=== PATIENT | male | born 1935 | race Caucasian/White ===

== ENCOUNTER 2017-02-05 15:01 | Inpatient (IN) | payer MEDICARE ==
[~2017-02-05 15:01] MED LIST: Iopamidol 370 76% 100 ML VIAL ONE
[2017-02-05] MEDS ORDERED: cefTRIAXone\\ROCEPHIN 2 GM in Sodium Chloride 0.9% 100 ML IVPB ONE (16:45)
[2017-02-05] MEDS ORDERED: Azithromycin 500 MG in Sodium Chloride 0.9% 250 ML 250 ML IVPB ONE (16:45)
[2017-02-05 16:55] LABS: Bilirubin Negative (Negative); Blood, Urine Trace (Negative); Glucose, Urine (Dipstick) 250 mg/dL (Negative); Ketone, Urine Negative (Negative); Nitrite Negative (Negative); Protein, Urine (Dipstick) 100 mg/dL (Neg-Trace)
[2017-02-05 16:57] LABS: Bacteria/HPF None Seen HPF (None Seen); RBC/HPF 0-3 HPF (0-3); Squamous Epithelial 0-3 HPF (0-3); WBC/HPF 0-3 HPF (0-3)
[2017-02-05 17:05] LABS: Hyaline Casts/LPF 0-3 HYALINE CAST LPF (0-3 Hyaline)
[2017-02-05 17:06] LABS: Renal Epithelial None Seen HPF (0-3); Transitional Epithelial NONE SEEN HPF (0-3)
[2017-02-05 17:39] LABS: Troponin I 0.017 ng/mL (< 0.028)
--- NOTE | 2017-02-05 18:22 | CT ---
CT OF THE THORAX WITH IV CONTRAST PE PROTOCAL WITH 3D REFORMATTED IMAGING: Indication: History of afib, left sided chest pain. Comparison: 12-17-15 FINDINGS: No central or segmental pulmonary embolus. There is airspace consolidation in the left lower lobe. Th ere are enlarged lymph nodes within the left hilar region. There is prominent cardiomegaly. There is prominence of the pulmonary vasculature. 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 Th ere is post-surgical change from prior mitral valvular replacement. There are areas of scattered peripheral ground glass opacities within the upper lobes, lingula and ri ght lower lobe which may reflect areas of subsegmental volume loss; however, edema or additional area s of infected pneumonitis cannot be entirely excluded. There has been interval development of a wedge compression abnormality at T6. Prominent hemangioma at T10 is similar. Smaller hemangioma within the right aspect of T3 is similar. IMPRESSION: 1. No central or segmental pulmonary embolus. 2. Left lower lobe pneumonia with left hilar lymphadenopathy. 3. There is prominent cardiomegaly and scattered ground glass opacities may reflect edema or subsegme ntal volume loss; however, infectious pneumonitis diffusely throughout both lungs cannot be entirely excluded. 4. Interval age indeterminate T6 wedge compression abnormality when compared to prior CT dated . POS: IKER
[2017-02-05] MEDS ORDERED: Chloraseptic Spray 180 ml Bottle PO PRN (18:49)
[2017-02-05] MEDS ORDERED: Acetaminophen 325 MG TAB PO PRN (18:49)
[2017-02-05] MEDS ORDERED: Ondansetron HCl/PF 4 MG/2 ML Vial IVP PRN (18:49)
[2017-02-05] MEDS ORDERED: Benzonatate 100 MG CAP PO PRN (18:49)
[2017-02-05] MEDS ORDERED: hydrALAZINE 20 MG/ML VIAL SLOW IVP PRN (18:49)
[2017-02-05] MEDS ORDERED: Sodium Chloride 0.65% Nasal 44 ML BOT EA NARE PRN (18:49)
[2017-02-05] MEDS ORDERED: Calcium Carbonate 500 MG ChewTAB PO PRN (18:49)
[2017-02-05 18:50] VITALS: BMI 23.1
[2017-02-05 20:30] LABS: Troponin I 0.021 ng/mL (< 0.028)
--- NOTE | 2017-02-05 20:43 | HP ---
CHIEF COMPLAINT: Generalized weakness. HISTORY OF PRESENT ILLNESS: This is an 82-year-old pleasant gentleman who was apparently in his [facility], came into the hospital because of generalized weakness. The patient actually was doing okay until the last couple of days, but today in the morning, he could not even get up from the chair and he called his daughter which he never does and his daughter came by. When she entered the room, he was a little confused and he was extremely weak, so she called 911 and he was brought to a different ER where they did initial workup and sent him out here for possible evaluation of the weakn ess. The patient out here had a CT scan of the chest to rule out PE and it showed left lower lobe pn eumonia and evidence of infectious pneumonitis diffusely throughout both lungs. The patient of note had cleaned his barn 2 or 3 days back. The patient had also suffered a fall 1-1/2 months back and urbina d been complaining of pain to the left side of the ribcage. The patient has some on and off cough, n o sputum production, no fever. No diarrhea or dysuria. The patient is going to be admitted for furt her evaluation and treatment of pneumonia and generalized weakness and T6 wedge compression abnormali ty. PAST MEDICAL HISTORY: Significant for atrial fibrillation, hyperlipidemia, hypertension, spontaneous small subacute cortical subarachnoid bleeds possibly secondary to Coumadin. The patient also had an other brain bleed in 2016 possibly secondary to trauma. He was on anticoagulation for the atrial fib rillation, which had been stopped by Dr. Wetzel. Of note, Dr. Wetzel was planning to do ablati on therapy for his atrial fibrillation. PAST SURGICAL HISTORY: Significant for CABG, hernia repair, ankle surgery. ALLERGIES: No known drug allergies. SOCIAL HISTORY: Does not smoke, drink, or do any recreational drugs. MEDICATIONS: Include only Crestor. He was taken off of all of his other medications. FAMILY HISTORY: Negative for diabetes and hypertension. REVIEW OF SYSTEMS: Significant for left-sided chest pain, otherwise no fever, no chills, no headache , no appetite, no hearing latencies. Some cough, some shortness of breath, generalized weakness. No diarrhea, dysuria, or polyuria. No memory or mood changes. No neck pain. PHYSICAL EXAMINATION: VITAL SIGNS: Blood pressure is 158/87, afebrile, respirations 22, pulse is 69. GENERAL: The patient is lying in bed, no apparent respiratory distress. HEENT: Atraumatic, n. Pupils equally round and react to light. Extraocular movements intact. Muco us membranes are moist. NECK: Supple. No JVD. CHEST: Some coarse breath sounds and rhonchi present in the left lower lobe, no rales. HEART: S1, S2. Irregular rhythm. ABDOMEN: Soft, obese. EXTREMITIES: No cyanosis, clubbing, edema. Distal pulses present. NEUROLOGIC: Alert, awake, oriented. No cranial deficits. No sensorimotor deficits. LABORATORY DATA: Lactic acid is 2.4. Troponin is 0.017. UA is negative except for evidence of prot einuria. Hemoglobin is 17, WBC 6.6, platelet is 120. Creatinine is 1.77. The patient's other labs are pending. ASSESSMENT AND PLAN: 1. Left lower lobe pneumonia with evidence of patchy opacities most probably likely secondary to inf ectious pneumonitis giving rise to shortness of breath and generalized weakness. We will do flu anti gen. We will do Legionella, IV antibiotics, blood cultures, sputum cultures. 2. Sepsis secondary to pneumonia with lactic acidosis of 2.4. We will gently hydrate the patient an d monitor lactic acid. 3. Acute renal failure on chronic kidney disease secondary to dehydration secondary to poor oral int jada. We will gently hydrate the patient. 4. Atrial fibrillation with no anticoagulation secondary to brain bleed. We will monitor that this hospital stay. Dr. Wetzel is the manager park. 4. Hypertension appears to be stable. We will follow the labs and do the need for.
[2017-02-05] MEDS: Docusate 100 MG CAP PO SCH (20:50)
[2017-02-05] MEDS: HYDROcodone/Acetaminophen 5/325 mg Tablet PO PRN (21:36)
[2017-02-05] MEDS: Sodium Chloride 0.45% 1,000 ML IV SCH (21:39)
[2017-02-05 23:44] LABS: Troponin I 0.021 ng/mL (< 0.028)
--- NOTE | 2017-02-06 01:08 | CON ---
DATE OF CONSULTATION: 02/05/2017 HISTORY OF PRESENT ILLNESS: The patient is an 81-year-old male with a past medical history of coronary artery disease, arrhythmia, atrial fibrillation, hypertension, hyperlipidemia, CVA, who presented to the emergency department for left-sided chest and flank pain and generalized weakness, w hich has been progressive for about a week. The patient has also been experiencing cough. He has urbina d a chest done, which was notable for left lower lobe infiltrate and he was admitted to the medicine service for further management of pneumonia. CTA was also notable for an age indeterminate T6 wedge deformity when compared to prior CT from 12/2015. I am seeing the patient on the floor, he is compla ining of some left-sided chest pain. He has no appreciable back pain. He is generally weak througho ut. Denies any numbness or tingling in any extremities. Bowel or bladder incontinence. PAST MEDICAL HISTORY: Coronary artery disease, atrial fibrillation, hypertension, hyperlipidemia, hi story of hemorrhagic cerebrovascular accident. PAST SURGICAL HISTORY: Open heart surgery with valve repair, hernia repair, ankle surgery. SOCIAL HISTORY: The patient does not smoke, drink or use any drugs. ALLERGIES: The patient has no known drug allergies. FAMILY HISTORY: Noncontributory. REVIEW OF SYSTEMS: Per HPI. PHYSICAL EXAMINATION: GENERAL: The patient is lying in bed comfortable, in no acute distress. HEAD: Normocephalic, atraumatic. EYES: PERRLA. Extraocular movements intact. ENT: Oral mucosa is pink and intact. Voice is normal. NECK: Nontender to palpation. Free active range of motion, no meningismus or nuchal rigidity. RESPIRATORY: Symmetric chest expansion. No evidence of respiratory distress. CARDIOVASCULAR: Regular rate and rhythm. MUSCULOSKELETAL: Free active range of motion of all extremities, no focal motor weakness or reflex a symmetry. NEUROLOGIC: The patient is alert and oriented x3. Normal speech. No focal motor weakness. BACK: Nontender to palpation. ASSESSMENT: Age indeterminate T6 compression fracture. PLAN: We will recommend TLSO brace for treatment of compression fracture. No surgical intervention is indicated at this time. The patient should wear the brace for all out of bed activities, can ricky ve for lying in bed or when he needs to shower. We will plan to reevaluate the patient as outpatient in the office in 4 weeks with the repeat set of x-rays. Please reach out to Neurosurgery Service fo r additional questions or concerns.
[2017-02-06 05:08] LABS: ALT (SGPT) 10 U/L (8-55); AST (SGOT) 10 U/L (5-34); Alkaline Phosphatase 78 U/L (40-150); Anion Gap 10 mmol/L (10-20); BUN (Urea Nitrogen) 20 mg/dL (8.4-25.7); Bilirubin, Total 0.8 mg/dL (0.2-1.2); Calc. Creatinine Clearance 44 mL/min (70-130); Calcium 9.3 mg/dL (7.8-10.44); Carbon Dioxide 23 mmol/L (23-31); Chloride 110 mmol/L (98-107); Estimated GFR-MDRD 50; Globulin 2.3 g/dL (2.4-3.5); Protein, Total 5.7 g/dL (5.8-8.1)
[2017-02-06 05:36] LABS: Hematocrit 40.9 % (42.0-52.0); Mean Platelet Volume 7.7 fL (7.4-10.4); Neutrophil 76 % (42-75); Reactive Lymphocytes 3 % (0-10); White Blood Cell (WBC) Count 5.6 thou/uL (4.8-10.8)
[2017-02-06] MEDS ORDERED: FLU VACC TS2017-18 (>65YR) 0.5 ML SYRINGE IM ONE (09:00)
[2017-02-06] MEDS: Docusate 100 MG CAP PO SCH ×2 (09:23→21:19)
[2017-02-06] MEDS: Sodium Chloride 0.45% 1,000 ML IV SCH ×2 (09:30→23:13)
[2017-02-06] MEDS: HYDROcodone/Acetaminophen 10/325 mg Tablet PO PRN ×2 (10:50→21:54)
[2017-02-06] MEDS ORDERED: cefTRIAXone\\ROCEPHIN 1 GM in Sodium Chloride 0.9% 100 ML IVPB SCH (11:30)
[2017-02-06] MEDS: cefTRIAXone\\ROCEPHIN 1 GM, Syringe 0.4 ML in Sterile Water 9.6 ML SLOW IVP SCH (16:04)
--- NOTE | 2017-02-06 17:04 | PDOC.PN ---
- Subjective Encounter Start Date: 02/06/17 Encounter Start Time: 17:04 Patient seen and examined. No new complaints. No overnight events - Objective Resuscitation Status: Resuscitation Status DNR:Do Not Resuscitate MAR Reviewed: Yes Vital Signs & Weight: Vital Signs (12 hours) Temp Pulse Resp BP Pulse Ox 02/06/17 15:55 97.6 F 60 22 H 152/83 H 96 02/06/17 11:15 97.5 F L 65 16 149/72 H 95 02/06/17 07:22 97.4 F L 58 L 16 119/76 92 L 02/06/17 07:20 98.2 F 62 16 94 L Weight Admit Weight 166 lb Weight 166 lb I&O: 02/05/17 02/06/17 02/07/17 06:59 06:59 06:59 Intake Total 420 600 Output Total 470 350 Balance -50 250 Result Diagrams: 02/06/17 03:54 02/06/17 03:54 Phys Exam - Physical Examination Constitutional: NAD HEENT: PERRLA Neck: no JVD Respiratory: no wheezing coarse bs at bases Cardiovascular: no significant murmur Gastrointestinal: non-tender Musculoskeletal: pulses present Neurological: moves all 4 limbs Psychiatric: A&O x 3 Dx/Plan (1) PNA (pneumonia) Code(s): J18.9 - PNEUMONIA, UNSPECIFIED ORGANISM Status: Acute (2) Traumatic compression fracture of T6 thoracic vertebra Code(s): S22.050A - WEDGE COMPRESSION FRACTURE OF T5-T6 VERTEBRA, INIT Status : Acute (3) Afib Code(s): I48.91 - UNSPECIFIED ATRIAL FIBRILLATION Status: Acute (4) HTN (hypertension) Code(s): I10 - ESSENTIAL (PRIMARY) HYPERTENSION Status: Acute (5) Generalized weakness Code(s): R53.1 - WEAKNESS Status: Acute - Plan * cont abx * cont pt eval and treat
[2017-02-07 05:04] LABS: #Eosinphils 0.2 thou/uL (0.0-0.7); #Lymphocytes 1.5 thou/uL (1.20-3.40); #Monocytes 0.4 thou/uL (0.11-0.59); #Neutrophils 4.2 thou/uL (1.40-6.50); %Basophils 0.2 % (0.0-1.0); %Eosinophils 2.5 % (0.0-10.0); %Lymphocytes 23.6 % (21.0-51.0); %Monocytes 6.9 % (0.0-10.0); Mean Platelet Volume 7.2 fL (7.4-10.4); Red Blood Cell (RBC) Count 4.19 mill/uL (4.70-6.10); White Blood Cell (WBC) Count 6.3 thou/uL (4.8-10.8)
[2017-02-07 05:15] LABS: Anion Gap 10 mmol/L (10-20); BUN (Urea Nitrogen) 22 mg/dL (8.4-25.7); BUN/Creatinine Ratio 15.38; Calc. Creatinine Clearance 42 mL/min (70-130); Calcium 9.5 mg/dL (7.8-10.44); Carbon Dioxide 24 mmol/L (23-31); Chloride 108 mmol/L (98-107); Estimated GFR-MDRD 47; Phosphorus 2.8 mg/dL (2.3-4.7)
[2017-02-07] MEDS: Docusate 100 MG CAP PO SCH ×2 (08:31→21:08)
[2017-02-07] MEDS: HYDROcodone/Acetaminophen 10/325 mg Tablet PO PRN ×2 (10:34→17:13)
[2017-02-07] MEDS: cefTRIAXone\\ROCEPHIN 1 GM, Syringe 0.4 ML in Sterile Water 9.6 ML SLOW IVP SCH (12:46)
--- NOTE | 2017-02-07 13:36 | CON ---
DATE OF CONSULTATION: 02/07/2017 He is an 81-year-old demented gentleman from [place], [place], who says he has no primary ca re physician, though he says he sees Dr. Wetzel for his heart. He presented to the hospital 24 ho urs ago with symptoms of shortness of breath and some pain. The pain is mainly on the left side. X-ray shows an infiltrate though I reviewed several of his prev ious x-rays and CAT scan, all shows rather extensive bilateral lower lung fibrotic and bronchiectatic changes and pleural thickening. A diagnosis of atrial fibrillation, hypertension was made, pneumon ia was made. He was transferred here. He has been here for 2 days now. His son is at the bedside. He says his father is having symptoms o f dementia. 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 He did have asbe stos exposure, but he is very active. He lives by himself. He can walk at least a block or two with out getting markedly short of breath. He has smoked in the past, but quit smoking almost 30 years ago. No history of TB or previous histor y of pneumonia. PAST MEDICAL HISTORY: Coronary artery disease, hypertension, hyperlipidemia, previous CVA, SVT, atri al fibrillation. PAST SURGICAL HISTORY: Fractured right lower extremity, hernia repair, valvular surgery. MEDICATIONS FROM HOME: Apparently Crestor, no other medicine apparently given or taken. PHYSICAL EXAMINATION: GENERAL: Appears to be in mild distress. VITAL SIGNS: Blood pressure is 136/68, sats are 92 on 2 liters, respirations 16, temperature 98. CHEST: Chest reveals extensive crackles bilaterally, 1/3 way up the chest. CARDIAC: Normal S1-S2. No gallops. ABDOMEN: Soft. No masses. LABORATORY: White count is normal at 6.2, H&H 13 and 40, platelet count normal. Creatinine 1.43. He has a previous echo shows his EF was normal. His CAT scan of his chest shows very extensive bilateral lower lung interstitial alveolar infiltrates with some pleural thickening and bronchiectatic changes. He had a previous CT done about a year ago that showed diffuse fibrotic changes which to me appears t o be unchanged, or maybe slightly more pronounced in the left lung. IMPRESSION: 1. Bilateral pulmonary fibrosis and bronchiectasis and possibly superimposed left-sided pneumonia. 2. Former smoker. 3. He has asbestos exposure. 4. Coronary artery disease. 3. Previous valvular surgery. PLAN: From a pulmonary standpoint of view, nothing additional to offer at this time. I agree with empiric antibiotics. May consider low dose steroids for about 2 weeks. Follow up with primary care physician in [place]. To note, he is a DNR.
[2017-02-07] MEDS: Sodium Chloride 0.45% 1,000 ML IV SCH (13:57)
--- NOTE | 2017-02-07 16:12 | PDOC.PN ---
- Subjective Encounter Start Date: 02/07/17 Encounter Start Time: 16:10 Patient seen and examined. No new complaints. No overnight events - Objective Resuscitation Status: Resuscitation Status DNR:Do Not Resuscitate MAR Reviewed: Yes Vital Signs & Weight: Vital Signs (12 hours) Temp Pulse Resp BP Pulse Ox 02/07/17 11:38 98.7 F 65 16 136/88 94 L 02/07/17 08:00 97.6 F 73 24 H 02/07/17 07:20 97.6 F 73 24 H 171/86 H 96 Weight Admit Weight 166 lb Weight 165 lb 12.8 oz I&O: 02/06/17 02/07/17 02/08/17 06:59 06:59 06:59 Intake Total 420 1999 Output Total 470 975 Balance -50 1024 Result Diagrams: 02/07/17 04:00 02/07/17 04:00 Phys Exam - Physical Examination Constitutional: NAD HEENT: PERRLA Neck: no JVD Respiratory: no wheezing crackles at bases Cardiovascular: no significant murmur Gastrointestinal: non-tender Musculoskeletal: pulses present Neurological: moves all 4 limbs Dx/Plan (1) PNA (pneumonia) Code(s): J18.9 - PNEUMONIA, UNSPECIFIED ORGANISM Status: Acute (2) Traumatic compression fracture of T6 thoracic vertebra Code(s): S22.050A - WEDGE COMPRESSION FRACTURE OF T5-T6 VERTEBRA, INIT Status : Acute (3) Afib Code(s): I48.91 - UNSPECIFIED ATRIAL FIBRILLATION Status: Acute (4) HTN (hypertension) Code(s): I10 - ESSENTIAL (PRIMARY) HYPERTENSION Status: Acute (5) Generalized weakness Code(s): R53.1 - WEAKNESS Status: Acute - Plan * cont current mx * f/u pulm plan * oral prednisone 20 mg for 2 wks on d/c
[2017-02-08] MEDS: Sodium Chloride 0.45% 1,000 ML IV SCH (05:07)
[2017-02-08 06:26] LABS: Anion Gap 10 mmol/L (10-20); BUN (Urea Nitrogen) 19 mg/dL (8.4-25.7); BUN/Creatinine Ratio 15.45; Calc. Creatinine Clearance 49 mL/min (70-130); Calcium 9.2 mg/dL (7.8-10.44); Carbon Dioxide 20 mmol/L (23-31); Chloride 110 mmol/L (98-107); Estimated GFR-MDRD 56; Phosphorus 2.5 mg/dL (2.3-4.7)
[2017-02-08 06:34] LABS: #Eosinphils 0.3 thou/uL (0.0-0.7); #Lymphocytes 1.7 thou/uL (1.20-3.40); #Monocytes 0.4 thou/uL (0.11-0.59); %Basophils 0.6 % (0.0-1.0); %Eosinophils 3.9 % (0.0-10.0); %Lymphocytes 26.1 % (21.0-51.0); %Monocytes 6.6 % (0.0-10.0); Hematocrit 43.4 % (42.0-52.0); Mean Platelet Volume 8.2 fL (7.4-10.4); Red Blood Cell (RBC) Count 4.43 mill/uL (4.70-6.10); White Blood Cell (WBC) Count 6.4 thou/uL (4.8-10.8)
[2017-02-08] MEDS ORDERED: predniSONE 20 MG TAB PO SCH (08:00)
[2017-02-08] MEDS: Docusate 100 MG CAP PO SCH (09:28)
--- NOTE | 2017-02-08 09:58 | PRG ---
DATE OF SERVICE: 02/08/2017 This morning he is awake, alert, responsive. Cough, but no shortness of breath. PHYSICAL EXAMINATION: VITAL SIGNS: Sats are 96% on 1 liter, respirations 17, temperature 97, pulse 60, blood pressure 130/ 88. CHEST: Chest reveals bilateral crackles. CARDIAC: Normal S1, S2. ABDOMEN: Soft, no masses. LABORATORY DATA: White count 6000, H&H 14 and 43. Platelet count 112. Electrolytes are normal. IMPRESSION: 1. Bilateral bronchiectasis. 2. Probably pulmonary fibrosis. PLAN: Continue Levaquin, low dose prednisone, neb treatments. Eventually placement.
[2017-02-08] MEDS: cefTRIAXone\\ROCEPHIN 1 GM, Syringe 0.4 ML in Sterile Water 9.6 ML SLOW IVP SCH (11:22)
[2017-02-08] MEDS: HYDROcodone/Acetaminophen 5/325 mg Tablet PO PRN (11:23)
[2017-02-08 12:32] VITALS: TEMP 98.1
--- NOTE | 2017-02-08 14:05 | PDOC.PN ---
- Subjective Encounter Start Date: 02/08/17 Encounter Start Time: 14:03 Patient seen and examined. No new complaints. No overnight events doing better feels stronger - Objective Resuscitation Status: Resuscitation Status DNR:Do Not Resuscitate MAR Reviewed: Yes Vital Signs & Weight: Vital Signs (12 hours) Temp Pulse Resp BP BP Pulse Ox 02/08/17 12:00 98.1 F 66 20 141/66 H 95 02/08/17 08:00 97.6 F 60 17 152/88 H 96 02/08/17 04:00 97.6 F 57 L 18 139/83 94 L 02/08/17 02:15 97 Weight Admit Weight 166 lb Weight 166 lb I&O: 02/07/17 02/08/17 02/09/17 06:59 06:59 06:59 Intake Total 1998 2139 Output Total 975 1303 Balance 1024 837 Result Diagrams: 02/08/17 05:18 02/08/17 05:18 Phys Exam - Physical Examination Constitutional: NAD HEENT: PERRLA Neck: no JVD bibasilar crackles Cardiovascular: RRR Gastrointestinal: non-tender Musculoskeletal: pulses present Neurological: moves all 4 limbs Psychiatric: A&O x 3 Dx/Plan (1) PNA (pneumonia) Code(s): J18.9 - PNEUMONIA, UNSPECIFIED ORGANISM Status: Acute (2) Traumatic compression fracture of T6 thoracic vertebra Code(s): S22.050A - WEDGE COMPRESSION FRACTURE OF T5-T6 VERTEBRA, INIT Status : Chronic (3) Afib Code(s): I48.91 - UNSPECIFIED ATRIAL FIBRILLATION Status: Chronic (4) HTN (hypertension) Code(s): I10 - ESSENTIAL (PRIMARY) HYPERTENSION Status: Acute (5) Generalized weakness Code(s): R53.1 - WEAKNESS Status: Acute (6) Bronchiectasis Code(s): J47.9 - BRONCHIECTASIS, UNCOMPLICATED Status: Acute (7) Pulmonary fibrosis Code(s): J84.10 - PULMONARY FIBROSIS, UNSPECIFIED Status: Acute - Plan * doing better * d/c to [facility] for rehab * out pt f/u with nsx and pulm
--- NOTE | 2017-02-08 14:26 | DIS ---
DATE OF ADMISSION: 02/05/2017 DATE OF DISCHARGE: 02/09/2017 DISCHARGE DIAGNOSES: 1. Left lower lobe pneumonia, better. 2. Bronchiectasis, better. 3. Pulmonary fibrosis. 4. Sepsis secondary to pneumonia, better. 5. Lactic acidosis, better. 6. Acute renal failure on chronic kidney disease, better. 7. History of atrial fibrillation with no anticoagulation secondary to brain bleed. 8. Hypertension, stable. 9. Hyperlipidemia, stable. OUTPATIENT FOLLOWUPS: 1. Follow up with Pulmonary. 2. Outpatient followup with Dr. Wetzel. DISCHARGE MEDICATIONS: The patient's discharge medications include all home medications plus Levaqui n 500 mg p.o. daily for 7 days, prednisone 20 mg p.o. daily for 10 days, and Tessalon Perles 100 mg p .o. q.8 hours p.r.n. for cough. Patient's client service consultant on the case was Dr. Mcclendon. DISPOSITION: Rehab. BRIEF HOSPITAL COURSE: An 81-year-old pleasant gentleman who was apparently in his usual state of he alth, came into the hospital because of generalized weakness. Please refer to my H&P for further det ails. The patient was also hypoxic, so CTA was done which showed left lower lobe pneumonia, no PE an d evidence of bronchiectasis and pulmonary fibrosis. Dr. Mcclendon was consulted, who put the patient on some steroids. The patient was already on antibiotics. Blood cultures were negative. The patient i mproved with this treatment and is right now medically stable to be discharged to rehabilitation. In cidental finding of T6 compression fracture was also noted on the CT for which Neurosurgery was consu lted. They recommended back brace and outpatient followup with the patient. Patient right now is me dically stable to be discharged for rehabilitation and is asked to follow up with Neurosurgery and Pu lmonary as an outpatient. Family and the patient understand this plan of care. He was asked to come back to the emergency room in case symptoms recur. Total time for this discharge took 35 minutes.
[2017-02-08 15:45] VITALS: BP 172/82
== END 2017-02-08 15:43 | DRG 871 ==
LOC: ERS 15:01 → 2SW 16:42 → OBSVTOIN 16:42 → 2NO 02-07 19:00
PROVIDERS: ADMIT Internal Medicine; ATTEND Internal Medicine
DX: A41.9 Sepsis, unspecified organism (principal); J18.9 Pneumonia, unspecified organism; N17.9 Acute kidney failure, unspecified; S22.050A Wedge compression fracture of T5-T6 vertebra, initial encounter for closed fracture; E87.2 Acidosis; J84.10 Pulmonary fibrosis, unspecified; I48.91 Unspecified atrial fibrillation; J47.9 Bronchiectasis, uncomplicated; I12.9 Hypertensive chronic kidney disease with stage 1 through stage 4 chronic kidney disease, or unspecified chronic kidney disease; N18.9 Chronic kidney disease, unspecified; E78.5 Hyperlipidemia, unspecified; Z87.891 Personal history of nicotine dependence; Z86.73 Personal history of transient ischemic attack (TIA), and cerebral infarction without residual deficits; X58.XXXA Exposure to other specified factors, initial encounter
CPT/HCPCS: 36415; 71275; 80053; 80061; 80069; 81003; 81015; 83605; 85007; 85025; 85027; 87040; 87086; 90471; 90682; 94640; 96365; 96367; A4216; G0008; G8978-GP-CM; G8979-GP-CK; G8987-GO-CL; G8988-GO-CJ; J0456; J0696; J1956; J7050; J7506; J7620; Q2036